=== PATIENT | female | born 1970 | race Caucasian/White ===

== ENCOUNTER 2022-02-24 14:33 | Outpatient (REF) | payer OTHER, MEDICAID, SELFPAY ==
[2022-02-24 16:11] LABS: Vitamin B12 526 pg/mL (200-900)
== END 2022-02-24 14:34 | disposition home or self-care (01) ==
LOC: HO.LAB 14:33
PROVIDERS: Visit Provider Psychiatry & Neurology Neurology
DX: R26.89 Other abnormalities of gait and mobility (principal)
CPT/HCPCS: 36415; 82607